=== PATIENT | female | born 2000 | race Two or more races ===

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

== ENCOUNTER 2018-05-01 10:49 | Emergency (ER) | payer SELFPAY ==
[~2018-05-01] VITALS: Ht 165.1 cm; Wt 72.6 kg
[~2018-05-01 10:49] MED LIST: SULF1TAB24 PO
[2018-05-01 11:14] VITALS: BP 136/81
[2018-05-01 12:00] LABS: BILIRUBIN,URINE NEGATIVE (NEG); CLARITY,URINE CLEAR; COLOR,URINE YELLOW; NITRITE,URINE NEGATIVE (NEG); PROTEIN,URINE NEGATIVE (NEG-TRACE); UROBILINOGEN,URINE 0.2 mg/dL (0.2 mg/dL)
[2018-05-01 12:06] LABS: BACTERIA,URINE FEW /HPF (0-FEW); RBC,URINE 0 /HPF (0-2); SQUAMOUS EPITHELIAL CELL,UR MANY /LPF; WBC,URINE OCC /HPF (0-4)
--- NOTE | 2018-05-01 13:52 | PHYS DOC ---
Past Medical History Past Medical History: No Pertinent History, UTI Past Surgical History: No Surgical History Alcohol Use: None Drug Use: None Adult General Chief Complaint Chief Complaint: SEXUALLY TRANSMITTED DISEASE HPI HPI Patient is a 17 year old [f__sex] who presents with [] Review of Systems Review of Systems Constitutional: Denies fever or chills [] Eyes: Denies change in visual acuity, redness, or eye pain [] HENT: Denies nasal congestion or sore throat [] Respiratory: Denies cough or shortness of breath [] Cardiovascular: No additional information not addressed in HPI [] GI: Denies abdominal pain, nausea, vomiting, bloody stools or diarrhea [] : Denies dysuria or hematuria [] Musculoskeletal: Denies back pain or joint pain [] Integument: Denies rash or skin lesions [] Neurologic: Denies headache, focal weakness or sensory changes [] Endocrine: Denies polyuria or polydipsia [] All other systems were reviewed and found to be within normal limits, except as documented in this note. Current Medications Current Medications Current Medications Medications (Trade) Dose Ordered Sig/Dwaine Start Time Stop Time Status Last Admin Dose Admin Azithromycin (Zithromax) 1,000 mg 1X ONCE 05/01/18 14:00 05/01/18 14:01 DC 05/01/18 14:13 1,000 MG Ceftriaxone Sodium (Rocephin Im) 250 mg 1X ONCE 05/01/18 14:00 05/01/18 14:01 DC 05/01/18 14:13 250 MG Allergies Allergies Allergies Coded Allergies Type Severity Reaction Last Updated Verified No Known Drug Allergies 06/07/17 No Physical Exam Physical Exam Constitutional: Well developed, well nourished, no acute distress, non-toxic appearance. [] HENT: Normocephalic, atraumatic, bilateral external ears normal, oropharynx moist, no oral exudates, nose normal. [] Eyes: PERRLA, EOMI, conjunctiva normal, no discharge. [] Neck: Normal range of motion, no tenderness, supple, no stridor. [] Cardiovascular:Heart rate regular rhythm, no murmur [] Lungs & Thorax: Bilateral breath sounds clear to auscultation [] Abdomen: Bowel sounds normal, soft, no tenderness, no masses, no pulsatile masses. [] Skin: Warm, dry, no erythema, no rash. [] Back: No tenderness, no CVA tenderness. [] Extremities: No tenderness, no cyanosis, no clubbing, ROM intact, no edema. [] Neurologic: Alert and oriented X 3, normal motor function, normal sensory function, no focal deficits noted. [] Psychologic: Affect normal, judgement normal, mood normal. [] Current Patient Data Vital Signs Vital Signs Date Time Temp Pulse Resp B/P (MAP) Pulse Ox O2 Delivery O2 Flow Rate FiO2 05/01/18 11:14 97.8 78 16 136/81 (99) 100 Room Air 97.8 Lab Values Laboratory Tests Test 05/01/18 11:50 05/01/18 11:51 Urine Collection Type Unknown Urine Color Yellow Urine Clarity Clear Urine pH 6.0 Urine Specific [place] 1.010 Urine Protein Negative mg/dL (NEG-TRACE) Urine Glucose (UA) Negative mg/dL (NEG) Urine Ketones (Stick) Negative mg/dL (NEG) Urine Blood Negative (NEG) Urine Nitrite Negative (NEG) Urine Bilirubin Negative (NEG) Urine Urobilinogen Dipstick 0.2 mg/dL (0.2 mg/dL) Urine Leukocyte Esterase Negative (NEG) Urine RBC 0 /HPF (0-2) Urine WBC Occ /HPF (0-4) Urine Squamous Epithelial Cells Many /LPF Urine Bacteria Few /HPF (0-FEW) Urine Mucus Slight /LPF POC Urine HCG, Qualitative Hcg negative (Negative) Microbiology 05/01/18 Wet Prep - Final, Complete EKG EKG [] Radiology/Procedures Radiology/Procedures [] Course & Med Decision Making Course & Med Decision Making Pertinent Labs and Imaging studies reviewed. (See chart for details) [] Dragon Disclaimer Dragon Disclaimer This electronic medical record was generated, in whole or in part, using a voice recognition dictation system. Departure Departure Impression: Primary Impression: Bacterial vaginosis Additional Impression: Contact with and (suspected) exposure to infections with a predominantly sexual mode of transmission Disposition: 01 HOME, SELF-CARE Condition: STABLE Referrals: UNKNOWN PCP NAME (PCP) Patient Instructions: Bacterial Vaginosis, [id number], Sexually Transmitted Disease, [id number] Additional Instructions: Fill prescription and use as directed. You were treated for suspected sexually transmitted infection.avoid having intercourse until the results of gonorrhea and chlamydia testing are available. These results will not be available for 48 hours. If one or both of these tests is positive, patient needs to refrain from intercourse for approximately 2 weeks following the treatment of any current partners. Follow-up with your primary care doctor as needed, return to the ER if symptoms worsen. Scripts Metronidazole (FLAGYL) 500 Mg Tablet 1 TAB PO BID for 7 Days, #14 TAB 0 Refills Prov: DANIELE BRITO APRN 05/01/18 Problem Qualifiers DANIELE BRITO APRN May 01, 2018 13:52
[2018-05-01] MEDS ORDERED: cefTRIAXone IM 250 MG VIAL IM ONE (14:00)
[2018-05-01] MEDS ORDERED: AZITHROMYCIN 250 MG TABLET. PO ONE (14:00)
[2018-05-01] MEDS ORDERED: METR500T PO (14:31)
[2018-05-02 13:23] LABS: GC PROBE Negative (Negative)
== END 2018-05-01 14:43 | disposition home or self-care (01) ==
LOC: ER 10:49
DX: Z20.2 Contact with and (suspected) exposure to infections with a predominantly sexual mode of transmission (principal); N76.0 Acute vaginitis; B96.89 Other specified bacterial agents as the cause of diseases classified elsewhere
CPT/HCPCS: 81001; 81025; 87491; 87591; 96372; 99283; J0696; Q0111; Q0144